=== PATIENT | female | born 1935 | race African-American/Black ===

== ENCOUNTER 2016-03-25 13:31 | Emergency (ER) | payer BC, MEDICAID ==
[~2016-03-25] VITALS: Ht 170.2 cm; Wt 69.9 kg
[~2016-03-25 13:31] MED LIST: ACET650T10 PO; BISA10SU8 RC; HYDR-548 PO; HYDR2TAB35 PO; MAGN400O6 PO; MULT1CAP34 PO; NA P133E RC; OXYB10TA PO; OXYC20TA58 PO; PANT40TA4 PO; SENN-18 PO; SOLI10TA PO; ZOLP5TAB7 PO
[2016-03-25] MEDS ORDERED: KETOROLAC TROMETHAMINE INJ 30 MG/ML VIAL ONE (14:16)
[2016-03-25] MEDS ORDERED: KETOROLAC TROMETHAMINE INJ 30 MG/ML VIAL IM ONE (14:30)
[2016-03-25 17:00] VITALS: BP 124/76
== END 2016-03-25 17:03 | disposition home or self-care (01) ==
LOC: ER 13:34
DX: S76.012A Strain of muscle, fascia and tendon of left hip, initial encounter (principal); I10 Essential (primary) hypertension; F17.200 Nicotine dependence, unspecified, uncomplicated; Z79.82 Long term (current) use of aspirin; X58.XXXA Exposure to other specified factors, initial encounter; Y93.9 Activity, unspecified; Y92.9 Unspecified place or not applicable; Y99.9 Unspecified external cause status
CPT/HCPCS: 73503; 96372; 99284; A4606; J1885; 73510-TC; Z7610

== ENCOUNTER 2016-03-25 21:43 | Emergency (ER) | payer BC, MEDICAID ==
[~2016-03-25] VITALS: Ht 152.4 cm; Wt 45.4 kg
[2016-03-26 05:53] VITALS: BP 113/66
== END 2016-03-26 05:54 | disposition home or self-care (01) ==
LOC: ER 21:45
DX: M25.552 Pain in left hip (principal); I10 Essential (primary) hypertension; M19.90 Unspecified osteoarthritis, unspecified site; F17.200 Nicotine dependence, unspecified, uncomplicated; Z88.6 Allergy status to analgesic agent
CPT/HCPCS: 99283; A4606; Z7610

== ENCOUNTER 2016-03-26 09:59 | Emergency (ER) | payer BC, MEDICAID ==
[~2016-03-26] VITALS: Ht 160 cm; Wt 55.3 kg
[2016-03-26] MEDS ORDERED: KETOROLAC TROMETHAMINE INJ 30 MG/ML VIAL ONE (10:24)
[2016-03-26 10:28] VITALS: BP 121/75
[2016-03-26] MEDS ORDERED: KETOROLAC TROMETHAMINE INJ 60 MG/2 ML VIAL IM ONE (10:30)
== END 2016-03-26 10:50 | disposition home or self-care (01) ==
LOC: ER 10:00
DX: M25.552 Pain in left hip (principal); G89.29 Other chronic pain; F17.200 Nicotine dependence, unspecified, uncomplicated; I10 Essential (primary) hypertension; Z88.6 Allergy status to analgesic agent
CPT/HCPCS: 96372; 99283; A4606; J1885; Z7610